=== PATIENT | female | born 1955 | race Caucasian/White ===

== ENCOUNTER 2021-11-07 13:40 | Emergency (ER) | payer MEDICARE ==
[2021-11-07] MEDS ORDERED: HYDROCODONE-ACETAMIN 2.5-108/5 ML SOLUTION PO STA (14:07)
[2021-11-07] MEDS ORDERED: HYDROCODONE-ACETAMIN 2.5-108/5 ML SOLUTION ONE (14:10)
--- NOTE | 2021-11-07 14:14 | ERPHSYRPT ---
- History of Present Illness Time Seen by Provider: 11/07/21 14:07 Source: patient Exam Limitations: no limitations Patient Subjective Stated Complaint: Pt c/o of cough, runny nose with congestion, and tiredness since Monday morning Triage Nursing Assessment: Pt brought to the ER by her friend, hypertension, rates chest pain from coughing as 3-4/10, small amount of clear sputum, lungs clear, pulses normal Physician History: 66 years old female presented in the ER with chief complaint of flulike symptoms for the last 2 days. Patient reports wet to dry cough productive of clear sputum small amount with chest soreness because of repeated coughing and generalized body ache fatigue and tiredness. Because of repeated coughing spells feels getting nauseated at times. No difficulty breathing but scratchiness of throat and runny nose. Denies any known sick contact. Timing/Duration: day(s) (2), intermittent, gradual onset, worse Cough Quality/Degree: mild, moderate, productive cough Possible Cause: no prior episodes Modifying Factors: Worsens With: coughing Associated Symptoms: chest pain/soreness, cough, headache, muscle aches, nasal congestion, nasal drainage, sinus infection, sore throat, No fever, No chills, No shortness of breath, No wheezing Allergies/Adverse Reactions: No Known Drug Allergies Allergy (Verified 11/07/21 14:06) Home Medications: Amlodipine Besylate 10 mg PO DAILY 11/07/21 [History] Propranolol HCl 20 mg PO DAILY 11/07/21 [History] Triamterene/Hydrochlorothiazid [Triamterene-Hctz 37.5-25 mg Tb] 1 each PO DAILY 11/07/21 [History] Hx Influenza Vaccination/Date Given: Yes (but not recently) Hx Pneumococcal Vaccination/Date Given: Yes (2019) Travel Risk - International Travel Have you traveled outside of the country in past 3 weeks: No - Coronavirus Screening Are you exhibiting any of the following symptoms?: Yes Symptoms: Cough: New Onset Close contact with a COVID-19 positive Pt in past 14-21 Days: No - Vaccine Status Have you recieved a Covid-19 vaccination: Yes 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: [employer] - Vaccination Dates Date of 2cond Vaccination (if applicable): 2020 - Review of Systems Constitutional: Fatigue, Weakness Eyes: No Symptoms Ears, Nose, & Throat: Nose Congestion, Nose Discharge, Sinus Drainage Respiratory: Cough Cardiac: No Symptoms Abdominal/Gastrointestinal: No Symptoms Genitourinary Symptoms: No Symptoms Musculoskeletal: Myalgias Skin: No Symptoms Neurological: No Symptoms Psychological: No Symptoms Endocrine: No Symptoms Hematologic/Lymphatic: No Symptoms Immunological/Allergic: No Symptoms - Past Medical History Pertinent Past Medical History: Yes Cardiac History: Hypertension - Past Surgical History Past Surgical History: Yes Gastrointestinal: Hemorrhoidectomy Other Surgical History: partial cholectomy - Social History Smoking Status: Current every day smoker Exposure to second hand smoke: Yes Drug Use: none Patient Lives Alone: No - Nursing Vital Signs Nursing Vital Signs: Initial Vital Signs Temperature 97.7 F 11/07/21 13:52 Pulse Rate 99 H 11/07/21 13:52 Blood Pressure 174/97 11/07/21 13:52 O2 Sat by Pulse Oximetry 96 11/07/21 13:52 Pain Scale Pain Intensity 3 - Physical Exam General Appearance: no apparent distress, alert Eye Exam: PERRL/EOMI Ears, Nose, Throat Exam: TMs normal, pharyngeal erythema Neck Exam: normal inspection, non-tender, supple, full range of motion Respiratory Exam: normal breath sounds, lungs clear Cardiovascular Exam: regular rate/rhythm, normal heart sounds Gastrointestinal/Abdomen Exam: soft, No tenderness Back Exam: normal inspection, normal range of motion Extremity Exam: normal inspection, normal range of motion Neurologic Exam: alert, oriented x 3, cooperative, business analysis analyst II-XII nml as tested Skin Exam: normal color SpO2 Interpretation: normal SpO2: 96 O2 Delivery: Room Air Ordered Tests: Active Orders 24 hr Category Date Time Status CHEST 1 VIEW (PORTABLE) Stat Exams 11/07/21 14:08 Taken Medication Summary Discontinued Medications Generic Name Dose Route Start Last Admin Trade Name Bairon PRN Reason Stop Dose Admin Hydrocodone Bitart/Acetaminophen 10 ml 11/07/21 14:07 11/07/21 14:10 Hydrocodone/Acetaminophen 5 Ml Udcup PO 11/07/21 14:08 10 ml STAT STA Administration Hydrocodone Bitart/Acetaminophen Confirm 11/07/21 14:10 Hydrocodone/Acetaminophen 5 Ml Udcup Administered 11/07/21 14:11 Dose 10 ml .ROUTE .K-MED ONE Lab/Rad Data: Laboratory Results 11/07/21 Range/Units 15:00 Influenza Type A Ag NEGATIVE (NEGATIVE) Influenza Type B Ag NEGATIVE (NEGATIVE) RSV (PCR) NEGATIVE (Negative) SARS-CoV-2 (PCR) NEGATIVE (NEGATIVE) - Progress Progress: improved Air Movement: good Progress Note: 11/07/21 16:00 66 years old is evaluated for flulike symptoms. She is not in any distress. Lungs fairly clear to auscultation. X-ray showed questionable infiltrative process on the right side, no previous comparison x-ray available. Official report is pending. Has negative COVID-19. Patient does smoke and has some element of COPD as well. I will give her doxycycline and albuterol to use as needed and outpatient follow-up recommended. Discussed signs symptoms of worsening needing return to ER which she seems understanding. Blood Culture(s) Obtained: No Antibiotics given: Yes Counseled pt/family regarding: lab results, diagnosis, need for follow-up, rad results, smoking cessation - Departure Departure Disposition: Home Clinical Impression: URI with cough and congestion Condition: Stable Critical Care Time: No Referrals: Provider,Unknown [Primary Care Provider] - Follow up/PCP as directed ALBERTO TORO [ACTIVE STAFF] - Follow Up with PCP/3 days Instructions: Cough, Adult (DC) Additional Instructions: Use inhaler as needed. Do not smoke. Take Tylenol as needed. Follow-up with primary care for reevaluation. Return to ER for any worsening. Prescriptions: Albuterol Sulfate [Albuterol Sulfate Hfa] 8.5 gm IH Q6H PRN 7 Days #1 inh PRN Reason: Cough Doxycycline Hyclate 100 mg [Vibramycin 100 MG] 100 mg PO BID #14 tab
[2021-11-07 15:23] LABS: INFLUENZA A NEGATIVE (NEGATIVE); INFLUENZA B NEGATIVE (NEGATIVE); RESPIRATORY SYNCTIAL VIRUS NEGATIVE (Negative); SARS-CoV-2 Xpert Express NEGATIVE (NEGATIVE)
[2021-11-07 16:12] VITALS: BP 135/81; PULSE 78; O2SAT 98
--- NOTE | 2021-11-07 18:32 | XRAY ---
Indication: Cough and short of breath. Comparison: None Portable chest demonstrates normal heart and lungs. Bony thorax intact with mild osteopenia and degenerative changes.
== END 2021-11-07 16:13 | disposition home or self-care (01) ==
LOC: ED 13:40
DX: J06.9 Acute upper respiratory infection, unspecified (principal); R05.1 Acute cough; R09.81 Nasal congestion; M79.10 Myalgia, unspecified site; R53.83 Other fatigue; J02.9 Acute pharyngitis, unspecified; I10 Essential (primary) hypertension; Z72.0 Tobacco use; Z79.899 Other long term (current) drug therapy
CPT/HCPCS: 0241U; 71045; 99283; A9270-GY